=== PATIENT | male | born 1965 | race Caucasian/White ===

== ENCOUNTER 2021-07-11 06:25 | Emergency (ER) | payer MEDICAID ==
[~2021-07-11] VITALS: Ht 167.6 cm; Wt 59.1 kg
[2021-07-11 06:50] VITALS: BP 114/92
--- NOTE | 2021-07-11 08:10 | NUR ---
PT GIVEN PRINTED PAPERWORK OF [employer] SERVICES AVAILABLE IN [facility] PT INQUIRING.
== END 2021-07-11 08:55 | disposition home or self-care (01) ==
LOC: ER 06:26
DX: B34.9 Viral infection, unspecified (principal); Z20.822 Contact with and (suspected) exposure to COVID-19; F17.200 Nicotine dependence, unspecified, uncomplicated; Z72.89 Other problems related to lifestyle
CPT/HCPCS: 87635; 99283; C9803